=== PATIENT | female | born 1955 | race Caucasian/White ===

== ENCOUNTER 2020-11-11 15:00 | Inpatient (IN) | payer BC ==
[2020-11-20 10:51] VITALS: BMI 37.0
[2020-11-23] MEDS ORDERED: Tranexamic Acid 1,000 MG/10 ML VIAL ONE (09:30)
[2020-11-23] MEDS ORDERED: Vancomycin 1.5 GRAM/300 ML BAG ONE (09:30)
[2020-11-23] MEDS ORDERED: Sodium Chloride 0.9% 100 ML ONE (09:31)
[2020-11-23] MEDS ORDERED: Ondansetron PF 4 MG/2 ML Vial ONE (10:04)
[2020-11-23] MEDS ORDERED: PROPOFOL 200 MG/20 ML VIAL ONE (10:04)
[2020-11-23] MEDS ORDERED: Ropivacaine 2% HCl/PF (20 MG/10 ML VIAL) ONE (10:04)
[2020-11-23] MEDS ORDERED: Bupivacaine HCl 0.5%/Epinephrine 1:200,000/PF 30 ml Vial ONE (10:04)
[2020-11-23] MEDS ORDERED: Dexamethasone 20 MG/5 ML VIAL ONE (10:04)
[2020-11-23] MEDS ORDERED: Fentanyl 100 MCG/2 ML VIAL ONE ×7 (11:12→16:56)
[2020-11-23] MEDS ORDERED: Midazolam HCl 2 mg/2 ml Vial ONE ×2 (11:12→15:43)
[2020-11-23] MEDS ORDERED: Ropivacaine 0.2% HCl/PF 20 ML ONE (11:31)
[2020-11-23] MEDS ORDERED: Fentanyl 100 MCG/2 ML VIAL IV PRN (11:52)
[2020-11-23] MEDS ORDERED: Ondansetron PF 4 MG/2 ML Vial IVP PRN (12:00)
[2020-11-23] MEDS ORDERED: Ketorolac Tromethamine 30 MG/ML VIAL IVP SCH (12:00)
[2020-11-23] MEDS ORDERED: Zolpidem Tartrate 5 MG TAB PO PRN ×2 (12:00→12:33)
[2020-11-23] MEDS ORDERED: traMADol HCl 50 MG TAB PO PRN (12:00)
[2020-11-23] MEDS ORDERED: Promethazine HCl 25 MG/ML VIAL IM PRN ×3 (12:00→13:59)
[2020-11-23] MEDS ORDERED: Bupivacaine PF 0.5% 30 ML VIAL ONE ×2 (12:18→12:38)
[2020-11-23] MEDS ORDERED: Lidocaine 1% (PF) 30 ML VIAL ONE (12:18)
[2020-11-23] MEDS ORDERED: methylPREDNISolone Acetate 40 mg/ml Vial ONE (12:18)
[2020-11-23] MEDS ORDERED: diphenhydrAMINE 25 MG CAP PO PRN (12:33)
[2020-11-23] MEDS ORDERED: Acetaminophen 325 MG TAB PO PRN (12:33)
[2020-11-23] MEDS ORDERED: Tranexamic Acid 1,000 MG in Sodium Chloride 0.9% 100 ML IVPB SCH (12:45)
[2020-11-23] MEDS ORDERED: Ondansetron HCl/PF 4 MG/2 ML Vial IVP PRN (13:59)
[2020-11-23] MEDS ORDERED: Promethazine HCl 25 MG/ML VIAL SLOW IVP PRN (13:59)
[2020-11-23] MEDS ORDERED: Ketorolac Tromethamine 30 MG/ML VIAL ONE (14:54)
[2020-11-23] MEDS: Sodium Chloride 0.9% 1,000 ML IV SCH (17:45)
[2020-11-23] MEDS: HYDROcodone/Acetaminophen 10/325 mg Tablet PO PRN ×2 (17:46→22:21)
[2020-11-23] MEDS: CEFAZOLIN 2 GM in Premix Bag 1 BAG IVPB SCH (17:46)
[2020-11-23] MEDS ORDERED: HYDROmorphone 2 MG/ML VIAL SLOW IVP PRN (18:24)
[2020-11-23] MEDS: Aspirin 81 mg Enteric Coated Tablet PO SCH (20:21)
[2020-11-23] MEDS: Ketorolac Tromethamine 30 MG/ML VIAL IVP SCH (20:21)
[2020-11-23] MEDS: Atorvastatin Calcium 10 MG TAB PO SCH (20:21)
[2020-11-23] MEDS ORDERED: Vancomycin 1.5 GRAM/300 ML BAG 1.5 GM in Premix Bag 1 BAG IVPB SCH (23:00)
[2020-11-24] MEDS: Sodium Chloride 0.9% 1,000 ML IV SCH ×2 (02:38→07:17)
[2020-11-24] MEDS: CEFAZOLIN 2 GM in Premix Bag 1 BAG IVPB SCH (02:39)
[2020-11-24] MEDS: Ketorolac Tromethamine 30 MG/ML VIAL IVP SCH ×4 (02:39→20:20)
[2020-11-24] MEDS: HYDROcodone/Acetaminophen 10/325 mg Tablet PO PRN ×4 (05:58→20:21)
[2020-11-24 06:14] LABS: Hemoglobin 10.6 g/dL (12.0-16.0); Mean Corpuscular HGB CONC 33.9 g/dL (32.0-36.0); Mean Corpuscular Hemoglobin 31.9 pg (27.0-31.0); Mean Corpuscular Volume 94.2 fL (78.0-98.0); Platelet Count 224 thou/uL (130-400); RBC Distribution Width 11.4 % (11.5-14.5); Red Blood Cell (RBC) Count 3.32 mill/uL (4.20-5.40); White Blood Cell (WBC) Count 11.1 thou/uL (4.8-10.8)
[2020-11-24] MEDS: Aspirin 81 mg Enteric Coated Tablet PO SCH ×2 (07:45→20:20)
[2020-11-24] MEDS: Multivitamin W/ Minerals 1 TAB PO SCH (07:45)
[2020-11-24] MEDS: Senokot S 8.6-50 MG TAB PO SCH ×2 (07:45→20:20)
[2020-11-24] MEDS: CeleCOXIB 100 MG CAP PO SCH (07:45)
[2020-11-24] MEDS: Ferrous Gluconate 324 MG TAB PO SCH ×2 (07:45→20:20)
--- NOTE | 2020-11-24 08:20 | PRG ---
DATE OF SERVICE: 11/24/2020 SUBJECTIVE: Cely is a 65-year-old female who is postop day 1 from a left total knee arthroplasty. She is doing relatively well. She has no complaints and she is tolerating the pain very well. OBJECTIVE: VITAL SIGNS: Temperature 98.3, pulse 74, respiratory rate is 16 and unlabored, blood pressure is 122/73. GENERAL: She is alert oriented to person, place, time, situation, response with appropriate with examiner. EXTREMITIES: Incision is clean, closed without erythema. She is neurovascularly intact in the left lower extremity. LABORATORY DATA: Hemoglobin and hematocrit 10.6 and 31.3. IMPRESSION: A 65-year-old female postop day 1, left total knee arthroplasty, doing well. PLAN: 1. Continue current care. Initiate physical therapy. 2. Continue to observe for hemorrhage. Continue to follow for pain control. Job ID: [id number]
[2020-11-24] MEDS: traMADol HCl 50 MG TAB PO PRN (11:56)
--- NOTE | 2020-11-24 12:25 | OP ---
DATE OF PROCEDURE: 11/23/2020 PREOPERATIVE DIAGNOSIS: Left knee osteoarthrosis. POSTOPERATIVE DIAGNOSIS: Left knee osteoarthrosis. PROCEDURE PERFORMED: Left total knee replacement using [place] pinless navigation. BRAND STRATEGY MANAGER: Hayden Caldwell PA-C. The cosmetic sales assistant surgeon was present throughout the procedure to include the approach, preparation, and placement of final implants as well as closure of the knee. ESTIMATED BLOOD LOSS: Minimal. COMPLICATIONS: None. ANESTHESIA: She had general anesthetic as well as preoperative block. IMPLANTS: To the left knee include a Venus Triathlon total knee system. The femur was a size 5 cruciate retaining femur. We used a size 4 primary tibial baseplate. We used a 4 x 9 mm CS X3 tibial bearing and asymmetric 28-mm patella, the patella was also X3. DISPOSITION: She went to recovery room in stable condition. INDICATIONS: This is a 65-year-old female, who has failed nonoperative treatment for her left knee arthritic pain and at this time, she wished to have her left knee replaced. PROCEDURE IN DETAIL: After all appropriate consent forms were explained and signed, the patient was taken back to the operating room and at this time was given general anesthetic. Once the level of anesthesia was appropriate, a well-padded tourniquet was placed on the left leg, and the leg was then prepped and draped in standard surgical fashion. The limb was exsanguinated and tourniquet taken up to 300 mmHg. Midline incision was made with a 10 blade down through the skin and subcutaneous tissue. Bovie electrocautery was used to coagulate any brisk venous bleeding. A new blade was used to make a medial parapatellar arthrotomy. Small subperiosteal release was performed medially and excess fat pad was removed. The knee was flexed up to gain access to the femur. The femur was navigated and distal femoral resection was made. Epicondylar access was used to align our sizing jig and this was pinned in place. We sized our femur to be a size 5 cruciate retaining femur. 4:1 cutting block was applied and pinned. Anterior and posterior chamfer cuts were then made. We navigated out our proximal tibia and made our proximal tibial resection. Spreaders were used to remove any posterior osteophytes off the back of the femur as well as remaining meniscal tissue. A long alignment jeremiah was then used to achieve correct rotation of our tibial baseplate and we used a size 4 primary tibial baseplate was chosen. This was pinned in place. We trialed the polyethylene and we used a 4 x 9 mm CS X3 tibial bearing polyethylene gave us full extension and good stability throughout range of motion. Two towel clips and a saw were used to cut our patella. Three lug nuts were drilled and asymmetric 28-mm patella, the patella was also X3, was trialed which sat nicely in the trochlear groove. We then drilled our femur and punched our tibia. All components were removed. The knee was thoroughly irrigated and dried. Cement was mixed into the cement gun on the back table. Components were then placed. The knee was held out in full extension until the cement had dried. All excess bone cement was removed. Multiple #2 Vicryl stitches as well as a Quill were used to close our extensor mechanism. 0 Quill followed by a running Monoderm was then used to close the skin. Surgicel glue was then used on the skin. Once this had dried, soft tissue dressing was applied to the limb, tourniquet was let down, and the toes pinked up nicely. The patient was then awakened and taken to the recovery room in stable condition. All counts were correct at the end of the case. The patient did receive preoperative IV antibiotics. The patient was injected with Marcaine for postoperative pain relief. Job ID: [id number]
[2020-11-24] MEDS: Ropivacaine HCl/PF 250 ML in Premix Bag 1 BAG NERVE BLCK SCH (14:45)
[2020-11-24] MEDS: Atorvastatin Calcium 10 MG TAB PO SCH (20:20)
[2020-11-25] MEDS: traMADol HCl 50 MG TAB PO PRN ×2 (00:02→10:38)
[2020-11-25] MEDS: Ketorolac Tromethamine 30 MG/ML VIAL IVP SCH ×3 (03:35→15:55)
[2020-11-25] MEDS: Ondansetron PF 4 MG/2 ML Vial IVP PRN ×3 (04:14→20:19)
[2020-11-25] MEDS: HYDROcodone/Acetaminophen 10/325 mg Tablet PO PRN ×2 (05:37→20:11)
[2020-11-25] MEDS: Sodium Chloride 0.9% 1,000 ML IV SCH ×2 (05:41→15:55)
[2020-11-25 06:55] LABS: Hemoglobin 9.8 g/dL (12.0-16.0); Mean Corpuscular HGB CONC 33.8 g/dL (32.0-36.0); Mean Corpuscular Hemoglobin 32.3 pg (27.0-31.0); Mean Corpuscular Volume 95.7 fL (78.0-98.0); Mean Platelet Volume 8.6 fL (7.4-10.4); Platelet Count 174 thou/uL (130-400); RBC Distribution Width 11.8 % (11.5-14.5); Red Blood Cell (RBC) Count 3.03 mill/uL (4.20-5.40); White Blood Cell (WBC) Count 7.8 thou/uL (4.8-10.8)
[2020-11-25] MEDS: Multivitamin W/ Minerals 1 TAB PO SCH (08:49)
[2020-11-25] MEDS: Senokot S 8.6-50 MG TAB PO SCH ×2 (08:49→20:12)
[2020-11-25] MEDS: CeleCOXIB 100 MG CAP PO SCH (08:49)
[2020-11-25] MEDS: Aspirin 81 mg Enteric Coated Tablet PO SCH ×2 (08:50→20:13)
[2020-11-25] MEDS: Ferrous Gluconate 324 MG TAB PO SCH ×2 (08:50→20:12)
[2020-11-25] MEDS ORDERED: Ondansetron ODT 4 MG TAB SL PRN (11:24)
[2020-11-25] MEDS: Ropivacaine HCl/PF 250 ML in Premix Bag 1 BAG NERVE BLCK SCH (18:19)
[2020-11-25] MEDS: Atorvastatin Calcium 10 MG TAB PO SCH (20:12)
[2020-11-26] MEDS: HYDROcodone/Acetaminophen 10/325 mg Tablet PO PRN ×2 (05:12→08:57)
[2020-11-26 05:43] LABS: Hemoglobin 9.5 g/dL (12.0-16.0); Mean Corpuscular HGB CONC 32.6 g/dL (32.0-36.0); Mean Platelet Volume 7.9 fL (7.4-10.4); Platelet Count 198 thou/uL (130-400); RBC Distribution Width 11.7 % (11.5-14.5); Red Blood Cell (RBC) Count 3.05 mill/uL (4.20-5.40); White Blood Cell (WBC) Count 7.1 thou/uL (4.8-10.8)
[2020-11-26] MEDS: Sodium Chloride 0.9% 1,000 ML IV SCH ×2 (07:05→08:55)
[2020-11-26] MEDS: Ferrous Gluconate 324 MG TAB PO SCH (08:54)
[2020-11-26] MEDS: CeleCOXIB 100 MG CAP PO SCH (08:54)
[2020-11-26] MEDS: Senokot S 8.6-50 MG TAB PO SCH (08:54)
[2020-11-26] MEDS: Aspirin 81 mg Enteric Coated Tablet PO SCH (08:55)
[2020-11-26] MEDS: Multivitamin W/ Minerals 1 TAB PO SCH (08:55)
[2020-11-26 16:51] VITALS: BP 144/69; TEMP 97
== END 2020-11-26 15:45 | disposition home or self-care (01) | DRG 470 ==
LOC: SURG A 11-23 08:59 → SURG B 11-23 17:41
PROVIDERS: ADMIT Orthopaedic Surgery; ATTEND Orthopaedic Surgery
PROC: 0SRD0J9 Replacement of Left Knee Joint with Synthetic Substitute, Cemented, Open Approach (ICD-10-PCS; principal; 2020-11-23)
DX: M17.12 Unilateral primary osteoarthritis, left knee (principal); E78.5 Hyperlipidemia, unspecified; Z20.822 Contact with and (suspected) exposure to COVID-19; Z79.82 Long term (current) use of aspirin; Z79.899 Other long term (current) drug therapy
CPT/HCPCS: 36415; 85027; C1713; C1776; J0690; J1100; J1885; J2001; J2250; J2405; J2704; J2795; J2920; J3010; J3370; J3490; Q0162; Q0163; S0020